=== PATIENT | female | born 1935 | race Caucasian/White ===

== ENCOUNTER 2020-07-24 18:43 | Inpatient (IN) | payer MEDICARE, OTHER ==
--- NOTE | 2020-07-24 19:12 | EDM.PDOC ---
ED HPI GENERAL MEDICAL PROBLEM - General Chief Complaint: Respiratory Problem Time Seen by Provider: 07/24/20 18:43 Source of Information: Reports: Patient History Limitations: Reports: No Limitations - History of Present Illness INITIAL COMMENTS - FREE TEXT/NARRATIVE: Pt. presents to ER via private vehicle. Pt. is a resident at [facility] and was diagnosed with covid 19 on 07/19. Family is concerned that the patient's O2 saturation has been low recently. Staff states that her O2 sat was in the 70s prior to coming to ER. In reviewing her chart, pt. PCP (Dr. Avila at [place]) was notified of her low O2 sats today. At that time, she was running in the 88%- 91% range, according to a phone note. Pt. states that "she is not sure why she is here". She offers no complaint and denies any shortness of breath. Pt. does have a history of dementia, and is not the best historian. Overall, she was in no distress on arrival to ER. Onset: Today Onset Date: 07/24/20 Location: Reports: Generalized - Related Data Allergies Allergy/AdvReac Type Severity Reaction Status Date / Time No Known Allergies Allergy Verified 07/24/20 18:58 Home Meds: Home Meds Ascorbic Acid [Vitamin C] 1,000 mg PO DAILY 07/24/20 [History] Citalopram Hydrobromide [Celexa] 10 mg PO DAILY 07/24/20 [History] Clopidogrel Bisulfate [Plavix] 75 mg PO DAILY 07/24/20 [History] Donepezil HCl 10 mg PO DAILY 07/24/20 [History] Metoprolol Tartrate [Lopressor] 75 mg PO DAILY 07/24/20 [History] Montelukast [Singulair] 10 mg PO DAILY 07/24/20 [History] amLODIPine Besylate [Amlodipine Besylate] 10 mg PO DAILY 07/24/20 [History] lisinopriL [Lisinopril] 40 mg PO DAILY 07/24/20 [History] ED ROS GENERAL - Review of Systems Review Of Systems: See Below Constitutional: Reports: No Symptoms HEENT: Reports: No Symptoms Respiratory: Reports: Other (diagnosed with covid 19. Denies any significant shortness of breath.). Denies: Shortness of Breath Cardiovascular: Reports: No Symptoms Endocrine: Reports: No Symptoms GI/Abdominal: Reports: No Symptoms : Reports: No Symptoms Musculoskeletal: Reports: No Symptoms Skin: Reports: No Symptoms Neurological: Reports: Confusion, Pre-Existing Deficit (existing dementia) Psychiatric: Reports: No Symptoms Hematologic/Lymphatic: Reports: No Symptoms Immunologic: Reports: No Symptoms ED EXAM, GENERAL - Physical Exam Exam: See Below Exam Limited By: No Limitations General Appearance: Alert, WD/WN, No Apparent Distress Eye Exam: Bilateral Eye: EOMI, PERRL Throat/Mouth: Normal Inspection, Normal Oropharynx, Normal Voice, No Airway Compromise Head: Atraumatic, Normocephalic Neck: Normal Inspection, Supple, Non-Tender, Full Range of Motion Respiratory/Chest: No Respiratory Distress, No Accessory Muscle Use, Chest Non- Tender, Other (mildly decreased breath sounds in the bases.) Cardiovascular: Normal Peripheral Pulses, Regular Rate, Rhythm, No Edema, No JVD Peripheral Pulses: 4+: Radial (R) GI/Abdominal: Soft, Non-Tender, No Distention, No Mass (Female) Exam: Deferred Rectal (Female) Exam: Deferred Back Exam: Normal Inspection, Full Range of Motion Extremities: Normal Range of Motion, Non-Tender, Normal Capillary Refill Neurological: Alert, CN II-XII Intact, Normal Reflexes, No Motor/Sensory Deficits, Confused, Disoriented, Other (Pt. awake, able to answer questions. She is confused. Follows commands.) Psychiatric: Normal Affect, Normal Mood Skin Exam: Warm, Dry, Intact, No Rash, Pallor Course - Vital Signs Last Recorded V/S: Last Vital Signs Temp 35.7 C L 07/24/20 18:43 Pulse 97 07/24/20 18:43 Resp 16 07/24/20 18:43 BP 136/67 07/24/20 18:43 Pulse Ox 88 L 07/24/20 18:43 - Orders/Labs/Meds Orders: Active Orders 24 hr Category Date Time Status Patient Status [ADT] Routine ADT 07/24/20 21:37 Ordered EKG Documentation Completion [RC] STAT Care 07/24/20 18:54 Active PE Chest [Ang Chest] [CT] Stat Exams 07/24/20 20:16 Taken Labs: Laboratory Tests 07/24/20 07/24/20 07/24/20 Range/Units 19:35 19:35 19:35 WBC 11.5 H (4.0-10.0) x10^3/uL RBC 4.41 (4.00-5.50) x10^6/uL Hgb 13.3 (12.0-16.0) g/dL Hct 39.9 (33.0-47.0) % MCV 90.5 (78.0-93.0) fL MCH 30.2 (26.0-32.0) pg MCHC 33.3 (32.0-36.0) g/dL RDW Coeff of [place] 13.3 (10.0-15.0) % Plt Count 319 (130-400) x10^3/uL Neut % (Auto) 88.8 H (50.0-80.0) % Lymph % (Auto) 5.1 L (25.0-50.0) % [place] % (Auto) 5.5 (2.0-11.0) % Eos % (Auto) 0.3 (0.0-4.0) % Baso % (Auto) 0.3 (0.2-1.2) % PT 10.6 (9.5-12.3) SEC INR 1.0 L (2.0-3.5) D-Dimer, Quantitative 3.69 H (<=0.58) mg/LFEU Sodium 138 (136-145) mmol/L Potassium 3.6 (3.5-5.1) mmol/L Chloride 99 (98-107) mmol/L Carbon Dioxide 25 (21-32) mmol/L Anion Gap 17.6 (10-20) mmol/L BUN 26 H (7-18) mg/dL Creatinine 1.1 H (0.55-1.02) mg/dL Est Cr Clr Drug Dosing TNP Estimated GFR (MDRD) 47 Glucose 104 (74-106) mg/dL Calcium 9.4 (8.5-10.1) mg/dL Corrected Calcium 9.96 (8.5-10.1) mg/dL Total Bilirubin 0.6 (0.2-1.0) mg/dL AST 40 H (15-37) U/L ALT 49 (14-59) U/L Alkaline Phosphatase 128 H (46-116) U/L Troponin I < 0.017 (<=0.056) ng/mL Total Protein 8.4 H (6.4-8.2) g/dL Albumin 3.3 L (3.4-5.0) g/dL Globulin 5.1 Albumin/Globulin Ratio 0.65 Meds: Medications Discontinued Medications Generic Name Dose Route Start Last Admin Trade Name Freq PRN Reason Stop Dose Admin Azithromycin 500 mg 07/24/20 21:27 Zithromax PO 07/24/20 21:28 ONETIME ONE Iopamidol 100 ml 07/24/20 20:22 07/24/20 21:03 Isovue-300 (61%) IVPUSH 07/24/20 20:23 100 ml ONETIME ONE Administration Departure - Departure Time of Disposition: 21:50 Disposition: Home, Self-Care 01 Clinical Impression: Pulmonary embolism, COVID-19 - Discharge Information Referrals: Steven Munoz MD [Primary Care Provider] - Forms: ED Department Discharge Sepsis Event Note (ED) - Evaluation Sepsis Screening Result: No Definite Risk - Focused Exam Vital Signs: Vital Signs Temp Pulse Resp BP Pulse Ox 07/24/20 18:43 35.7 C L 97 16 136/67 88 L - Problem List Review Problem List Initiated/Reviewed/Updated: Yes - My Orders Last 24 Hours: My Active Orders 07/24/20 18:54 EKG Documentation Completion [RC] STAT 07/24/20 20:16 PE Chest [Ang Chest] [CT] Stat 07/24/20 21:37 Patient Status [ADT] Routine - Assessment/Plan Last 24 Hours: My Active Orders 07/24/20 18:54 EKG Documentation Completion [RC] STAT 07/24/20 20:16 PE Chest [Ang Chest] [CT] Stat 07/24/20 21:37 Patient Status [ADT] Routine Plan: Pt. is a code 2. CTA chest was positive for pulmonary embolism. She has evidence of viral pneumonia as well. Dr. Vasquez will be admitting the patient and ordering anticoagulation for the patient. Pt. daughter (Harper) was contacted at [phone] and briefed on the patient. She consented to admission, as the patient suffers for advanced dementia.
--- NOTE | 2020-07-24 19:50 | CR ---
[id number] RAD/RAD Chest Portable EXAM: RAD Chest Portable INDICATION: COVID 19 COMPARISON: None. DISCUSSION: Cardiomediastinal silhouette is normal in size and contour. Patchy airspace opacifications bilaterally, right greater than left. Trace left pleural effusion. No pneumothorax. Pulmonary hyperinflation. IMPRESSION: Patchy airspace infiltrate bilaterally, right greater than left. Findings are likely infectious/inflammatory in nature as can be seen with atypical/viral pneumonia. Jacky Minor DO 07/24/20 1949 Thank you for allowing us to participate in the care of your patient.
[2020-07-24 20:06] LABS: CHLORIDE,CL 99 mmol/L (98-107); SODIUM,NA 138 mmol/L (136-145)
[2020-07-24 20:09] LABS: ANION GAP 17.6 mmol/L (10-20)
[2020-07-24] MEDS ORDERED: Iopamidol 612 MG/ML 100 ML Bottle IVPUSH ONE (20:22)
[2020-07-24] MEDS ORDERED: Azithromycin 250 MG Tab PO ONE (21:27)
[2020-07-24] MEDS ORDERED: QUEtiapine 25 MG Tab PO PRN (22:26)
[2020-07-24] MEDS: Enoxaparin 60 MG/0.6 ML Syringe SUBCUT SCH (23:24)
[2020-07-24] MEDS: Zinc (Zinc Gluconate) 50 MG Tab PO SCH (23:24)
[2020-07-24] MEDS: Warfarin 5 MG Tab PO SCH (23:24)
[2020-07-24] MEDS: QUEtiapine 25 MG Tab PO PRN (23:30)
--- NOTE | 2020-07-24 23:47 | HP ---
HISTORY OF PRESENT ILLNESS: An 84-year-old admitted for COVID-19 and a pulmonary embolism. The patient had diagnosis on 07/19. Then today, she became more hypoxic. Her O2 saturations were reported to be down in the 80% range. She was having 102.6 fever. They started her on dexamethasone and oxygen, but she was brought into the emergency room this evening. The patient really did not know why she was here. She denied any cough, any shortness of breath or fever, but stated she just did not feel well. Due to her dementia, she is a poor historian. She had a scan showing moderate bilateral pulmonary emboli. She has not had any leg swelling. She denies any history of stroke, although it is listed in her chart. She does have a history also of dementia. She tells me she has lived here for about a year. She had moved over from [place] with her , but he . ALLERGIES: Listed as none. MEDICATION LIST: Including the dexamethasone 6 mg daily, amlodipine 10 mg daily, vitamin C 1000 daily, Celexa 10 mg daily, Plavix 75 mg daily, Aricept 10 mg daily, lisinopril 40 mg daily, Lopressor 75 mg daily, Singulair 10 mg daily. PAST MEDICAL HISTORY: Includes cerebral artery disease with history of stroke, dementia, essential hypertension, hyperlipidemia with history of rhabdomyolysis. PAST SURGICAL HISTORY: She has had cataract surgery and eye surgery. SOCIAL HISTORY: She has not smoked any tobacco. She does not use alcohol. She is . She tells me she has 5 daughters. She was able to name 4 of them and where they live. REVIEW OF SYSTEMS: General: She is not aware of any weight changes. HEENT: She does have some sinus congestion, but denies any sore throat. No trouble swallowing. Cardiac: No chest pain. No palpitations. Respiratory: As stated in HPI. She has been hypoxic, but has not felt short of breath. Abdomen: No nausea, vomiting, diarrhea, or constipation. Musculoskeletal: No new aches or pains. Otherwise, all systems reviewed and found to be negative unless otherwise stated. PHYSICAL EXAMINATION: Vital Signs: To the floor admission; temperature 96.3, pulse 97, blood pressure 136/67, respiratory rate 16, O2 of 88 on room air. General: She is in no acute distress. Heart: Regular rate and rhythm. S1, S2 without murmur. Lungs: Sounds are clear to auscultation bilaterally without crackles or wheezes. Abdomen: Positive bowel sounds. Soft, nontender. Extremities: Warm and dry with trace edema. No calf tenderness. Mental Status: She is disoriented. She thinks she is in [place]. LABORATORY DATA: Laboratory work did show white count 11.5, hemoglobin 13.3, platelets 319. INR 1. D-dimer 3.69. Sodium 138, potassium 3.6, chloride 99, bicarb 25, BUN 26, creatinine 1.1, glucose 104, calcium 9.4, bilirubin 0.6, AST 40, ALT 49, alkaline phosphatase 128, troponin 0.017, albumin 3.3. Chest x-ray did not show any effusions, patchy infiltrates more on the left, infectious or inflammatory or atypical pneumonia. ASSESSMENT AND PLAN: 1. Coronavirus disease 2019 infection since 07/19. The patient is denying any symptoms. I believe her hypoxia is likely due to the pulmonary embolism. 2. Bilateral pulmonary embolism. This is in the setting of a coronavirus disease 2019 infection. We will start her on Lovenox 60 mg subcu twice daily and Coumadin 5 mg daily. 3. Dementia, late onset versus vascular dementia. We will continue supportive cares. I will have some Seroquel available p.r.n. 4. Acute hypoxic respiratory failure secondary to coronavirus disease 2019 and the pulmonary embolism. We will give her supportive oxygen. 5. Essential hypertension. We will continue home medications. 6. Possible pneumonia. She received a dose of Zithromax already. I am going to hold further antibiotics and send off for inflammation markers and a procalcitonin. 7. Mildly elevated LFTs. I will repeat in the a.m. 8. Mild malnutrition. We will encourage a diet. PLAN: The patient will be admitted for acute cares for treatment of a bilateral pulmonary embolism and COVID-19. We will continue dexamethasone for a total of 10 days. MKA: 07/24/2020 22:34:18 MODL: 07/24/2020 23:36:35 /[id number]
[2020-07-25] MEDS: Acetaminophen 325 MG Tab PO PRN ×2 (03:04→14:10)
[2020-07-25 07:41] LABS: ANION GAP 16.4 mmol/L (10-20)
--- NOTE | 2020-07-25 08:27 | CT ---
[id number] CT/CTA Chest EXAM: CT ANGIOGRAM CHEST INDICATION: SHORTNESS OF BREATH, POSITIVE D-DIMER, POSITIVE COVID. COMPARISON: None. DISCUSSION: There are multiple segmental and subsegmental pulmonary emboli involving the right middle and lower lobes as well as the left lingula and left lower lobe. Patchy areas of groundglass density scattered throughout the lungs, right greater than left. No confluent airspace consolidation. No pleural or pericardial effusion. Coronary artery disease. Atherosclerotic calcifications of the aorta and its branches. Multiple prominent mediastinal and hilar lymph nodes which are pathologically enlarged by CT size criteria. These are likely reactive in nature. Small hiatal hernia. IMPRESSION: 1. Multiple scattered segmental and subsegmental pulmonary emboli bilaterally. Overall embolic fluid is small. No evidence of acute right heart strain at this time. 2. Patchy areas of groundglass density scattered throughout the lungs bilaterally, right greater than left. Findings are likely infectious/inflammatory in nature as can be seen with atypical/viral pneumonia. Jacky Minor DO 07/25/20 0823 Thank you for allowing us to participate in the care of your patient.
[2020-07-25] MEDS: Enoxaparin 60 MG/0.6 ML Syringe SUBCUT SCH ×2 (09:36→19:46)
[2020-07-25] MEDS: Ascorbic Acid 500 MG Tab PO SCH ×2 (09:36→19:46)
[2020-07-25] MEDS: amLODIPine 10 MG Tab PO SCH (09:37)
[2020-07-25] MEDS: Cholecalciferol (Vitamin D3) 10 MCG Tab PO SCH (09:38)
[2020-07-25] MEDS: Zinc (Zinc Gluconate) 50 MG Tab PO SCH (09:39)
[2020-07-25] MEDS: Clopidogrel 75 MG Tab PO SCH (09:39)
[2020-07-25] MEDS: Montelukast 10 MG Tab PO SCH (09:39)
[2020-07-25] MEDS: dexAMETHasone 2 MG, dexAMETHasone 4 MG PO SCH ×2 (09:39)
[2020-07-25] MEDS: Citalopram 10 MG Tab PO SCH (09:40)
[2020-07-25] MEDS: Metoprolol Tartrate 50 MG Tab PO SCH (09:40)
[2020-07-25] MEDS: Lisinopril 20 MG Tab PO SCH (09:40)
[2020-07-25] MEDS: Potassium Chloride 10 MEQ Tab.ER PO SCH (09:50)
[2020-07-25] MEDS ORDERED: REMDESIVIR 200 MG in Sodium Chloride 0.9% 250 ML IV ONE (13:45)
--- NOTE | 2020-07-25 14:17 | PN ---
Progress Note for LEBRON ATKINSON Date: 07/25/2020 Room #: VM.210 SUBJECTIVE: This is hospital day #2 on an 84-year-old admitted with COVID-19 infection and bilateral pulmonary embolism. The patient does not feel short of breath. She denies that she is coughing or having chest pain. She was coughing when I walked into the room. She otherwise does not have any leg swelling. She was only on 2 L of oxygen last night, but sats dropped into the mid 80s and she had to go up to 5 L. She also spiked a temperature of 102.3 at 3 a.m. The patient has underlying dementia. She is delightfully confused, but able to answer questions appropriately. She knows she is in [place], but does not remember meeting me before. The patient had also been initiated on dexamethasone at her assisted living yesterday. Her diagnosis of COVID was on 07/19. OBJECTIVE: Vital Signs: The patient's temperature currently is 97.9, pulse is 78, blood pressure 106/58, respiratory rate 18, and O2 is 93 on 2 L. General: She is in no acute distress. Heart: Regular rate and rhythm without murmur. Lungs: Lung sounds are decreased with some fine crackles in both bases. Abdomen: Nondistended. Positive bowel sounds. Nontender. Extremities: Warm and dry. No edema. Mental Status: She is alert. She is orientated x1. LABORATORY DATA: Her lab work did show her to have a white count normal at 9.7, hemoglobin 11.5, platelets 300. Sodium 138, potassium 3.4, chloride 102, bicarb 23, BUN 24, creatinine 1, glucose 95, calcium 9.6, magnesium 2.3. Ferritin 1207. ALT and AST normal, alkaline phosphatase 103. Bilirubin normal. CRP 10.8. Albumin 2.6. ASSESSMENT AND PLAN: 1. Acute hypoxic respiratory failure secondary to COVID-19 infection. She will continue dexamethasone for a total of 10 days. She did get a dose of Zithromax due to concern for pneumonia. Procalcitonin level has already been sent off. We will await the return before ordering further antibiotics and repeat a chest x-ray today. The patient will also be started on remdesivir after I discussed with her daughter, Nydia Grubbs, who is the POA, providing information about remdesivir and letting her know that a patient and caregiver fact sheet will be left for her at the restaurant front manager if she does plan to drop off some things for her mother later. The drug had previously been under emergency use authorization and not fully FDA reviewed and approved. However, it has been shown to decrease the length of stay and hospitalization and the benefits at this time do outweigh the risks for Lebron. I shared that they can cause liver abnormalities and inflammation, so we will be checking those tests daily. There is also other side effects that may not be known due to limited studies. I did offer opportunity for her to ask questions and she was understanding and in agreement to proceed with treatment if it was okay with her siblings and she stated she would contact me within the next few hours if they had any objections. I did inform her that I would plan on starting this medication this afternoon. Therefore, I did initiate the medication around 1:30 p.m. 2. Bilateral pulmonary embolism. Moderate clot burden to the right middle and lower lobes as well as the left lingula and left lower lobe with no sign of heart strain. Her troponin was negative. 3. History of stroke and dementia. We will continue her home medications and supportive cares. 4. Essential hypertension. We will continue home medications. 5. Possible pneumonia. She did get that dose of Zithromax. 6. Mild malnutrition. We will encourage a diet. The patient will continue on acute cares. Her renal function does meet the GFR to give her remdesivir. We will give her 200 mg IV today and then 100 mg daily for the next 4 days. We will continue dexamethasone 6 mg daily. We will continue Lovenox and Coumadin. The patient is not wheezing or requiring any nebulizer. She has no history of chronic lung disease. She is on all the vitamins as recommended for COVID. We will use Tylenol as needed for fevers. MKA: 07/25/2020 13:23:22 MODL: 07/25/2020 14:10:00 /[id number]
--- NOTE | 2020-07-25 14:26 | CR ---
[id number] RAD/RAD Chest PA or AP 1V EXAM: FRONTAL CHEST INDICATION: HYPOXIA. COMPARISON: July 24, 2020. DISCUSSION: Moderate patchy bilateral infiltrates have significantly increased relative to yesterday's examination. No effusion is identified. Borderline heart size with possible early central vascular congestion. IMPRESSION: 1. Patchy bilateral infiltrates are most consistent with infection and have increased relative to the prior study. 2. Cardiomegaly with development of borderline central vascular congestion. Greg Langston MD 07/25/20 [id number] Thank you for allowing us to participate in the care of your patient.
[2020-07-25] MEDS: Warfarin 5 MG Tab PO SCH (19:46)
[2020-07-25] MEDS: Donepezil 10 MG Tab PO SCH (19:46)
[2020-07-25] MEDS: QUEtiapine 25 MG Tab PO PRN (21:08)
[2020-07-26 07:42] LABS: ANION GAP 20.4 mmol/L (10-20)
[2020-07-26] MEDS: Lisinopril 20 MG Tab PO SCH (08:46)
[2020-07-26] MEDS: Enoxaparin 60 MG/0.6 ML Syringe SUBCUT SCH ×2 (08:46→19:33)
[2020-07-26] MEDS: Zinc (Zinc Gluconate) 50 MG Tab PO SCH (08:46)
[2020-07-26] MEDS: Cholecalciferol (Vitamin D3) 10 MCG Tab PO SCH (08:46)
[2020-07-26] MEDS: Metoprolol Tartrate 50 MG Tab PO SCH (08:47)
[2020-07-26] MEDS: dexAMETHasone 2 MG, dexAMETHasone 4 MG PO SCH ×2 (08:48)
[2020-07-26] MEDS: Montelukast 10 MG Tab PO SCH (08:48)
[2020-07-26] MEDS: Clopidogrel 75 MG Tab PO SCH (08:48)
[2020-07-26] MEDS: amLODIPine 10 MG Tab PO SCH (08:49)
[2020-07-26] MEDS: Ascorbic Acid 500 MG Tab PO SCH ×2 (08:49→19:34)
[2020-07-26] MEDS: Citalopram 10 MG Tab PO SCH (08:50)
[2020-07-26] MEDS: Potassium Chloride 10 MEQ Tab.ER PO SCH (08:50)
[2020-07-26] MEDS: Azithromycin 250 MG Tab PO SCH (11:43)
[2020-07-26] MEDS: cefTRIAXone 1 GM Vial IVPUSH SCH (11:44)
--- NOTE | 2020-07-26 11:50 | PN ---
Progress Note for LEBRON ATKINSON Date: 07/26/2020 Room #: VM.210 SUBJECTIVE: This is hospital day #3 on an 84-year-old admitted with COVID-19 infection and bilateral pulmonary embolism. The patient was also given Zithromax on admission on evening of the . Her procalcitonin came back over 1 today. She had been moved up to 10 L yesterday and now this morning 15 L just to maintain saturations at 90%. Her initial COVID date was 07/19. She is denying any chest pain. She has some cough. She is more concerned about her sinuses right now. She does not feel like she is having difficulty breathing, but is winded when getting up and going to the bathroom with staff. She has not had any fever in the last 24 hours. Her last T-max was 102.3 at 3 a.m. on the . She has not been eating much of a diet. She denies diarrhea, but is having bowel movements. OBJECTIVE: Vital Signs: Do include temperature 99.9, pulse 88, blood pressure 112/58, respiratory rate 20, and O2 saturation 90 on 15 L. General: She is in no acute distress. Heart: Regular rate and rhythm with tachycardia. Lungs: Sounds are decreased with crackles in both bases. Abdomen: Has positive bowel sounds. It is soft and nontender. Extremities: Warm and dry with no edema. No calf tenderness. Mental Status: She is disoriented. She is not sure where she is, thinks she is at her current home at [place]. She does not recognize meeting me. She does not remember being told why she is here. Confusion is worse per family since she has been ill, she does have underlying dementia. LABORATORY DATA: White count up to 13.4, hemoglobin 11.8, platelets 318, neutrophils 89%. INR up to 1.5. Sodium 139, potassium 3.4, chloride 104, bicarb 18, BUN 28, creatinine 1, glucose 149, calcium 10.2, bilirubin 0.4, AST 35, ALT 33, albumin 2.5. Procalcitonin 1.13. ASSESSMENT AND PLAN: 1. Acute hypoxic respiratory failure secondary to COVID-19, pulmonary embolism, and pneumonia. We will continue supportive oxygen with 15 L non- rebreather. Discussed proning with nurse and patient. She is agreeable to this. We will also try to get her up in the chair as well today. We will repeat her chest x-ray. We will restart Zithromax 500 mg daily to complete another 4 days. We will also start IV Rocephin 1 g daily. Repeat her lab work tomorrow. Continue dexamethasone and remdesivir. No history of chronic lung disease. At this point, I did not feel that nebulizers would help, but we will consider starting them if needed. 2. Bilateral pulmonary embolism, on Coumadin and Lovenox. We will continue with the same and repeat tomorrow. She had no evidence of initial heart strain. Repeat Troponin in the AM. 3. History of stroke and dementia. We will continue her current home medications. 4. Essential hypertension, on home medications. 5. Community-acquired pneumonia in the setting of COVID-19. She is currently not having any fevers. White count is going up. We will monitor that tomorrow. Restart ABX 6. Mild malnutrition. We will encourage a diet. PLAN: The patient will continue acute cares. Her renal function is remaining excellent. We will continue to anticoagulate her and monitor her oxygen status and lab work closely. She is also mildly low on potassium. We are going to continue oral potassium daily. Her blood sugars have been acceptable. Updated her daughter, Nydia, about her critical situation and current treatments. We will try to do an iPad visit with the patient's family and her nurse today. She is on all the vitamins for the COVID as well. MKA: 07/26/2020 10:55:36 MODL: 07/26/2020 11:43:43 /[id number]
[2020-07-26] MEDS: QUEtiapine 25 MG Tab PO PRN ×2 (12:02→23:15)
[2020-07-26 14:52] LABS: PCO2 ARTERIAL,POC 32 mmHg (35-48)
--- NOTE | 2020-07-26 16:05 | CR ---
[id number] RAD/RAD Chest PA or AP 1V EXAM: RAD Chest PA or AP 1V INDICATION: HYPOXIA. COMPARISON: July 25, 2020 DISCUSSION: Extensive patchy airspace opacifications are again identified bilaterally. These have increased when compared to yesterday's study. This is especially true on the right. No definite pneumothorax or pleural effusion. Cardiac mediastinal silhouette is stable in size and contour. IMPRESSION: Increasing patchy airspace opacifications bilaterally, right greater than left. Jacky Minor DO 07/26/20 1604 Thank you for allowing us to participate in the care of your patient.
[2020-07-26] MEDS ORDERED: Furosemide 20 MG/2 ML VIAL IV ONE (16:25)
[2020-07-26] MEDS: REMDESIVIR 100 MG in Sodium Chloride 0.9% 100 ML IV SCH (16:48)
[2020-07-26] MEDS: Donepezil 10 MG Tab PO SCH (19:34)
[2020-07-26] MEDS: Warfarin 5 MG Tab PO SCH (19:34)
[2020-07-26] MEDS: Acetaminophen 325 MG Tab PO PRN (23:15)
[2020-07-27 07:33] LABS: PTT,PARTIAL THROMBOPLSTIN TIME 48.6 SEC (25.6-32.8)
[2020-07-27 07:42] LABS: ANION GAP 15.6 mmol/L (10-20)
[2020-07-27] MEDS: cefTRIAXone 1 GM Vial IVPUSH SCH (08:16)
[2020-07-27] MEDS: Metoprolol Tartrate 50 MG Tab PO SCH (08:16)
[2020-07-27] MEDS: Enoxaparin 60 MG/0.6 ML Syringe SUBCUT SCH ×2 (08:16→19:43)
[2020-07-27] MEDS: Azithromycin 250 MG Tab PO SCH (08:19)
[2020-07-27] MEDS: Zinc (Zinc Gluconate) 50 MG Tab PO SCH (08:20)
[2020-07-27] MEDS: Citalopram 10 MG Tab PO SCH (08:21)
[2020-07-27] MEDS: Ascorbic Acid 500 MG Tab PO SCH ×2 (08:21→19:44)
[2020-07-27] MEDS: Montelukast 10 MG Tab PO SCH (08:21)
[2020-07-27] MEDS: Potassium Chloride 10 MEQ Tab.ER PO SCH (08:21)
[2020-07-27] MEDS: Cholecalciferol (Vitamin D3) 10 MCG Tab PO SCH (08:22)
[2020-07-27] MEDS: dexAMETHasone 2 MG, dexAMETHasone 4 MG PO SCH ×2 (08:23)
[2020-07-27] MEDS: amLODIPine 10 MG Tab PO SCH (08:24)
[2020-07-27] MEDS: Lisinopril 20 MG Tab PO SCH (09:03)
[2020-07-27] MEDS ORDERED: Furosemide 20 MG/2 ML VIAL IV ONE (09:27)
--- NOTE | 2020-07-27 10:01 | CR ---
[id number] RAD/RAD Chest PA or AP 1V EXAM: FRONTAL CHEST INDICATION: HYPOXIA. COMPARISON: July 26, 2020. DISCUSSION: Moderate patchy multifocal bilateral infiltrates are most consistent with infection including Covid 19. Stable normal heart size. No effusions. IMPRESSION: 1. Stable moderate patchy bilateral infiltrates. Greg Langston MD 07/27/20 1000 Thank you for allowing us to participate in the care of your patient.
[2020-07-27] MEDS ORDERED: QUEtiapine 25 MG Tab PO PRN (16:30)
[2020-07-27] MEDS: REMDESIVIR 100 MG in Sodium Chloride 0.9% 100 ML IV SCH (18:36)
[2020-07-27] MEDS: Donepezil 10 MG Tab PO SCH (19:44)
--- NOTE | 2020-07-27 20:13 | PN ---
Progress Note for LEBRON ATKINSON Date: 07/27/2020 Room #: [facility] SUBJECTIVE: Hospital day #4 on an 84-year-old admitted with bilateral PEs and a COVID-19 infection. The patient continues to require 15 L of oxygen. She was unable to tolerate the BiPAP more than a few minutes. She is still quite confused. She believes she is in [place], but she does look better this morning. She is not struggling to breathe. She did get up out of bed, and unfortunately had a fall with no injury. She wandered out into the [place], so does need some supervision. Family had contacted staff because they have recovered from COVID. They would like to visit her. We do have a policy for visitation or support when somebody needs a sitter. I do feel this patient would qualify for that for her own safety. She has been afebrile today. She is coughing a little bit, seems to be most bothered by her sinuses. She has eaten very little. She is having bowel movements, but no diarrhea. She did get a dose of IV Lasix yesterday. Her proBNP is elevated this morning. She does have a worsening chest x-ray. She is on antibiotics day #3 of Zithromax, day #2 of Rocephin. OBJECTIVE: Vital Signs: Her temperature is 96.6, her pulse is 81, blood pressure 129/59, respiratory rate 20, and O2 of 88 on 15 L. General: She is in no acute distress. Heart: Regular rate and rhythm. S1 and S2 without murmur. Lungs: Sounds decreased with some fine crackles over the right base and expiratory wheezes throughout. Left lung is clear. Abdomen: Nondistended, positive bowel sounds, nontender. Extremities: Warm and dry. No edema. Mental Status: She is alert. She does not recognize me. She thinks she is in [place], not able to give me the date. LABORATORY DATA: White count up to 16.9, hemoglobin 12.2, and platelets 407. Sodium 143, potassium 3.6, chloride 107, bicarb 30, glucose 129, calcium 10.3. Bilirubin, ALT, AST all normal. Troponin negative. ProBNP 1619, albumin 2.6. ASSESSMENT: 1. Bilateral pulmonary embolisms in the setting of a coronavirus disease-19 infection. Actually, her INR is up to 2.5 today. She will get her last dose of Lovenox. Due to the quick increase in INR from 1.5 to 2.5, I am going to hold tonight's dose and check an INR in the morning. She was only getting 5 mg daily. 2. Coronavirus disease-19 infection. She is on remdesivir. She is on dexamethasone. She is on the vitamins. We will continue supportive oxygen. She was able to do some proning yesterday. We will continue with this. 3. Delirium with underlying dementia. Did discuss with her daughter, Lisa, family that has recovered. They do know the risks. They have been sick within the last few weeks with coronavirus disease. Will be allowed to be in the room with the patient as a one-on-one sitter. They may assist her with eating. 4. History of stroke. 5. Essential hypertension, on home medications. Due to dosing IV Lasix, I did hold her lisinopril this morning, but she will continue amlodipine. 6. Community-acquired pneumonia, on Rocephin and Zithromax, but with increasing white count, no fevers, we will continue the same treatments for now. 7. Mild malnutrition. We are encouraging a diet. 8. Acute diastolic heart failure. She has not received IV fluids, but does seem to be responding to IV Lasix. We will repeat a dose today. PLAN: The patient will continue on acute cares. Will continue with current treatments. Last dose of Lovenox tonight. MKA: 07/27/2020 19:30:33 MODL: 07/27/2020 20:02:57 /[id number] MTDD
[2020-07-28 07:46] LABS: ANION GAP 16.8 mmol/L (10-20)
[2020-07-28] MEDS: dexAMETHasone 2 MG, dexAMETHasone 4 MG PO SCH ×2 (10:15)
[2020-07-28] MEDS: Cholecalciferol (Vitamin D3) 10 MCG Tab PO SCH (10:15)
[2020-07-28] MEDS: cefTRIAXone 1 GM Vial IVPUSH SCH (10:15)
[2020-07-28] MEDS: Ascorbic Acid 500 MG Tab PO SCH ×2 (10:15→19:38)
[2020-07-28] MEDS: Lisinopril 10 MG Tab PO SCH (10:16)
[2020-07-28] MEDS: Azithromycin 250 MG Tab PO SCH (10:16)
[2020-07-28] MEDS: Zinc (Zinc Gluconate) 50 MG Tab PO SCH (10:16)
[2020-07-28] MEDS: Montelukast 10 MG Tab PO SCH (10:16)
[2020-07-28] MEDS: Citalopram 10 MG Tab PO SCH (10:16)
[2020-07-28] MEDS: Metoprolol Tartrate 50 MG Tab PO SCH (10:17)
[2020-07-28] MEDS: amLODIPine 10 MG Tab PO SCH (10:17)
[2020-07-28] MEDS: Potassium Chloride 10 MEQ Tab.ER PO SCH (10:38)
--- NOTE | 2020-07-28 15:19 | PN ---
Progress Note for LEBRON ATIKNSON Date: 07/28/2020 Room #: VM.210 SUBJECTIVE: This is hospital day #5 on an 84-year-old admitted with bilateral pulmonary embolism and a COVID-19 infection. Her positive test was on 07/19. She denies any fever. No trouble breathing. No cough. No chest pain. She would like to drink some water. She would like someone to be in the room with her. OBJECTIVE: Vital Signs: She has a temperature of 98.6, pulse 84, blood pressure 141/67, respiratory rate 18, and O2 of 91 on 15 L. General: She is in no acute distress. Heart: Regular rate and rhythm. S1 and S2 without murmur. Lungs: Lung sounds do show "crackles" on both bases. Abdomen: Positive bowel sounds. Soft and nontender. Extremities: Warm and dry. No edema. She does have some bruising over the left knee from a fall yesterday. Mental Status: The patient thinks she is somewhere in the basement. She is not able to tell me she is in the hospital or in [place]. LABORATORY DATA: Her lab work today did show her to have a white count up to 19,000, hemoglobin 12.5, and platelets 436. INR up to 3.9. Sodium 148, potassium 3.8, chloride 112, bicarbonate 23, BUN 35, creatinine 0.9, glucose 133, and calcium 9. Bilirubin 0.3, AST 28, and ALT 33. CRP 11.9. Albumin 2.6. UA did not show any signs of infection. ASSESSMENT AND PLAN: 1. Coronavirus disease-19 infection with an extended stay due to bilateral pulmonary embolism and acute hypoxic respiratory failure. Due to the coronavirus disease-19 pandemic and limited hospital beds around the [facility], the patient has extended beyond her 96-hour critical access window. She is actually starting to make some improvements, and given her confusion from dementia, it is best to continue treating her locally. Her daughter, who has recovered from coronavirus disease, does plan to come into the facility and be with her today which will help to have somebody with her, help her to eat, and avoid her getting out of bed and falling. 2. Bilateral pulmonary embolism. She has completed Lovenox. Her INR is therapeutic. I am going to hold Coumadin again today and check an INR in the morning. Slightly concerned about her rapid increase in INR despite only 5 mg of Coumadin. So, we will monitor closely and restart dosing very likely at a 2 mg or 2.5 mg dose. She is not having any bleeding problems. 3. Acute hypoxic respiratory failure. She does not tolerate the BiPAP well. She seems to be quite comfortable on nasal cannula. We will continue with the same. 4. Delirium due to underlying dementia. She does have p.r.n. Seroquel available. She did not even use any last night. 5. History of stroke. 6. Essential hypertension. I will restart her lisinopril. Her blood pressure is mildly elevated today. It was held yesterday due to getting IV Lasix. 7. Acute diastolic heart failure exacerbation. Clinically, the patient was retaining some fluid. This, despite limited intake, might be related to her steroids. I think we can hold off on further Lasix dosing today and continue to monitor. 8. Community-acquired pneumonia. She is on Rocephin and Zithromax. We will continue to complete a 5-day course. 9. Mild malnutrition. We are encouraging a diet. PLAN: The patient will continue on acute cares. We will continue IV antibiotics. We will continue the 5-day course of IV remdesivir. We will continue to monitor INRs closely. We will continue oxygen. We will continue her dexamethasone to complete a 10-day course as well, which will be on the . MKA: 07/28/2020 14:53:10 MODL: 07/28/2020 15:09:30 /[id number]
[2020-07-28] MEDS: REMDESIVIR 100 MG in Sodium Chloride 0.9% 100 ML IV SCH (17:27)
[2020-07-28] MEDS: Donepezil 10 MG Tab PO SCH (19:39)
[2020-07-28] MEDS: Acetaminophen 325 MG Tab PO PRN (20:34)
[2020-07-29] MEDS: cefTRIAXone 1 GM Vial IVPUSH SCH (08:16)
[2020-07-29] MEDS: Azithromycin 250 MG Tab PO SCH (08:17)
[2020-07-29] MEDS: Zinc (Zinc Gluconate) 50 MG Tab PO SCH (08:17)
[2020-07-29] MEDS: Sodium Chloride 0.9% 10 ML Syringe FLUSH SCH ×2 (08:17→19:31)
[2020-07-29] MEDS: Cholecalciferol (Vitamin D3) 10 MCG Tab PO SCH (08:17)
[2020-07-29] MEDS: amLODIPine 10 MG Tab PO SCH (08:18)
[2020-07-29] MEDS: Montelukast 10 MG Tab PO SCH (08:18)
[2020-07-29] MEDS: Metoprolol Tartrate 50 MG Tab PO SCH (08:18)
[2020-07-29] MEDS: Citalopram 10 MG Tab PO SCH (08:19)
[2020-07-29] MEDS: Ascorbic Acid 500 MG Tab PO SCH ×2 (08:19→19:30)
[2020-07-29] MEDS: dexAMETHasone 2 MG, dexAMETHasone 4 MG PO SCH ×2 (08:19)
[2020-07-29] MEDS: Lisinopril 10 MG Tab PO SCH (08:20)
[2020-07-29] MEDS: Acetaminophen 325 MG Tab PO PRN (08:20)
[2020-07-29] MEDS: Clopidogrel 75 MG Tab PO SCH (08:21)
[2020-07-29] MEDS ORDERED: Phytonadione ORAL 2.5mg/2.5ml Soln Simple Syrup U/D PO ONE (12:04)
[2020-07-29] MEDS: Sodium Chloride 0.9% 1,000 ML IV SCH ×2 (12:13→19:12)
[2020-07-29] MEDS ORDERED: TAZOBACTAM IV SCH (12:15)
[2020-07-29] MEDS ORDERED: SODIUM CHLORIDE 0.9% IV SCH (12:15)
[2020-07-29] MEDS ORDERED: PIPERACILLIN IV SCH (12:15)
[2020-07-29] MEDS ORDERED: Piperacillin/Tazobactam 4.5 GM in Sodium Chloride 0.9% 100 ML IV ONE (12:30)
[2020-07-29] MEDS ORDERED: Phytonadione 5 MG Tab PO STA (13:25)
[2020-07-29] MEDS: Donepezil 10 MG Tab PO SCH (19:31)
--- NOTE | 2020-07-29 20:34 | PN ---
Progress Note for LEBRON ATKINSON Date: 07/29/2020 Room #: VM.210 SUBJECTIVE: [facility] day #6 for an 84-year-old admitted with bilateral pulmonary embolism and COVID-19 infection. Her positive test was on 07/19. She has not had any fever. She denies trouble breathing. She just feels more weak and tired. She has been getting up to go to the bathroom with assistance. She is not having any burning. However, she is in acute renal failure and need to monitor strict in's and out's. Her INR also unfortunately is over 10 despite not having any Coumadin yesterday or the day before. She has been off Lovenox. We have been holding her Plavix. She has not had any bleeding problems. She has been eating very limited. I do not see a couple meals charted even at all yesterday and did have about 20% of dinner. She had one larger loose stool but has not been having ongoing diarrhea. She denies abdominal pain. She did have her daughter here to visit yesterday. She did remember it was Harper. She knows she is in the hospital. OBJECTIVE: VITAL SIGNS: Her temperature is 98.5, pulse 66, blood pressure 135/69, respiratory rate 20, and O2 91 on 15 L. GENERAL: She is in no acute distress. HEART: Regular rate and rhythm. S1, S2 without murmur. LUNGS: Sounds are decreased with crackles noted in both bases but slightly more clear than yesterday. ABDOMEN: Has positive bowel sounds. Soft, nondistended, nontender. EXTREMITIES: Warm and dry. No edema. MENTAL STATUS: Again, she is alert and oriented x2. LAB WORK: On chart fortunately showed that white count up to 25.4, hemoglobin 13.7, platelets 140, neutrophils 89%, yesterday 90. INR 10.1. Sodium 143, potassium 4, chloride 108, bicarb 21, BUN 58, creatinine 2.6 up from 0.9, glucose 146, calcium 8.3. Ferritin up to 3027. AST 82, ALT 43, alkaline phosphatase 153, albumin 2.4. ASSESSMENT: 1. COVID-19 infection, day #11, but with symptoms of acute hypoxic respiratory failure. We will stop the remdesivir due to renal failure. We will continue with her same oxygen. She does not appear to be in any respiratory distress. I will get a venous ABG in the morning. She is beyond her 96-hour critical access window, but due to the fact that she has not worsened and her overall care remains stable and shortage of other hospital bed around the state, we will continue to treat her here. Her daughter will also likely be coming today to provide some one-on-one care and feed her. 2. Bilateral pulmonary embolism. She is supratherapeutic on Coumadin. We are holding it. I gave her 2.5 of vitamin K. We will recheck tomorrow. 3. Acute hypoxic respiratory failure secondary to COVID-19. I do not feel she needs BiPAP. We will continue with the high-flow. 4. Delirium with underlying dementia. We will continue her home medications. She did get a dose of Seroquel last night. 5. History of stroke. 6. Essential hypertension. I have stopped her lisinopril due to the acute renal failure. We will continue her other medications. 7. Chronic diastolic heart failure exacerbation or concern for heart failure. At this point, she is in renal failure and dehydrated. I will give her fluid. We will have to watch her respiratory status closely. 8. Community-acquired pneumonia. She is on Rocephin and Zithromax. However, with increasing white count, we will stop the Rocephin and give her Zosyn, although there has not been any reports of aspiration. I will hold off on vancomycin due to my concern for her renal function. 9. Mild malnutrition. 10.Acute renal failure due to volume depletion and dehydration. Despite not having fever, the patient's renal status worsened. We will give her some IV fluids and repeat lab work tomorrow. PLAN: The patient will continue acute care. She will get started on IV fluids. We will stop remdesivir. She has also dexamethasone until the . She is on her vitamins. I will continue to monitor the INR closely. MKA: 07/29/2020 19:32:40 MODL: 07/29/2020 20:27:55 /[id number]
[2020-07-30] MEDS: Piperacillin/Tazobactam 3.375 GM in Sodium Chloride 0.9% 100 ML IV SCH ×3 (00:07→11:54)
[2020-07-30] MEDS: Sodium Chloride 0.9% 1,000 ML IV SCH (05:34)
[2020-07-30] MEDS: amLODIPine 10 MG Tab PO SCH (08:01)
[2020-07-30] MEDS: Metoprolol Tartrate 50 MG Tab PO SCH (08:02)
[2020-07-30] MEDS: Azithromycin 250 MG Tab PO SCH (08:02)
[2020-07-30] MEDS: Ascorbic Acid 500 MG Tab PO SCH ×2 (08:03→21:07)
[2020-07-30] MEDS: Zinc (Zinc Gluconate) 50 MG Tab PO SCH (08:03)
[2020-07-30] MEDS: Cholecalciferol (Vitamin D3) 10 MCG Tab PO SCH (08:03)
[2020-07-30] MEDS: Citalopram 10 MG Tab PO SCH (08:04)
[2020-07-30] MEDS: Montelukast 10 MG Tab PO SCH (08:04)
[2020-07-30] MEDS: Sodium Chloride 0.9% 10 ML Syringe FLUSH SCH ×2 (08:04→21:25)
[2020-07-30] MEDS: dexAMETHasone 2 MG, dexAMETHasone 4 MG PO SCH ×2 (08:04)
[2020-07-30] MEDS ORDERED: Ondansetron 4 MG/2 ML SDV IVPUSH PRN (09:20)
[2020-07-30] MEDS ORDERED: Warfarin 2.5 MG Tab PO ONE (09:21)
[2020-07-30] MEDS ORDERED: QUEtiapine 25 MG Tab PO PRN (09:24)
[2020-07-30 09:36] LABS: ANION GAP 22.8 mmol/L (10-20)
[2020-07-30] MEDS ORDERED: Ondansetron 4 MG/2 ML SDV ONE (09:36)
[2020-07-30] MEDS: Vancomycin 125 MG Cap PO SCH ×4 (10:07→21:07)
--- NOTE | 2020-07-30 10:32 | CR ---
[id number] RAD/RAD Chest PA or AP 1V EXAM: RAD Chest PA or AP 1V INDICATION: HYPOXIA. COMPARISON: July 27, 2020. DISCUSSION: Cardiomediastinal silhouette is stable in size and contour. Patchy airspace opacifications bilaterally. Overall these are not significantly changed when compared to the prior study. No pneumothorax or pleural effusion. IMPRESSION: Stable chest with extensive patchy airspace opacifications bilaterally. Jacky Minor DO 07/30/20 1031 Thank you for allowing us to participate in the care of your patient.
[2020-07-30] MEDS ORDERED: Furosemide 40 MG/4 ML VIAL IV ONE (11:18)
[2020-07-30] MEDS: Doxycycline 100 MG Cap PO SCH ×2 (11:49→21:07)
--- NOTE | 2020-07-30 12:26 | PN ---
Progress Note for LEBRON ATKINSON Date: 07/30/2020 Room #: VM.210 SUBJECTIVE: This is hospital day #7 on an 84-year-old admitted with COVID-19 infection and bilateral pulmonary embolism with acute hypoxic respiratory failure, day #12 of COVID but based on symptoms possibly already day 14. She has not had any fevers but has had increased trouble breathing. Yesterday, she was actually continuing in the upper 80s on 15 L, like she has been for her course, but this morning, she is consistently between 75% and 85% on the nasal high-flow, which does sometimes come out of her nose and she does not appreciate the non-rebreather. We have tried proning. She cannot keep on the non-rebreather in that position. We have repeated her chest x-ray, which did show bilateral infiltrates but no significant worsening. She has had diarrhea and was incontinent of stool this morning. A catheter was placed yesterday for strict in's and out's and acute renal failure, and she did have only 167 mL recorded out despite the fact I started IV fluids and she had in 2.43 L. She denies that she is in any pain. Daughter has heard her coughing. She still has trouble with her sinuses, is what she tells me, but she does not feel any shortness of breath. She does feel sort of sick to her stomach and has the bag to throw up in. She just spit up a little but denies that it is bad stomach pain. She did not have any intake for diet charted yesterday. OBJECTIVE: Vital Signs: Her temperature is 98.1, her pulse 80, blood pressure 151/66, respiratory rate 20, and O2 of 85 on 15 L. General: She is in mild respiratory distress today. Heart: Regular rate and rhythm. Lungs: Her lung sounds with significant crackles over the left base, much worse than on the right. She has decreased breath sounds and some crackles. Abdomen: Nondistended. Positive bowel sounds. Nontender. Extremities: Warm and dry. No edema. Mental Status: She is alert. She knows that it is her daughter, Harper, in the room. When I ask about where she is at, she cannot really understand or hear me. Genitourinary: Her catheter is having clean urine. LABORATORY WORK: Her white count is up to 36.4, hemoglobin 13.6, and platelets 85. This is a drop from yesterday. Neutrophils 98%. INR 2.7. Venous blood gases, CO2 was 31. Sodium 143, potassium 3.8, chloride 108, bicarbonate 16, BUN 86, creatinine 4.6, glucose 116, calcium 7.4, and AST 254, which is up. She had been on remdesivir. It was stopped due to renal failure yesterday. ALT 127, alkaline phosphatase 180. CRP 12.9, albumin 2.3, and lactic acid was 2. ASSESSMENT: 1. COVID-19 infection, severe with bilateral pulmonary embolisms and acute hypoxic respiratory failure. The patient is still on dexamethasone until the 08/02/2020. We have stopped the remdesivir. She is on high oxygen at 15 L. we are trying proning and non-rebreather. She already did not tolerate the BiPAP well earlier in her stay. Discussed with her daughter, Gloria, that patient has been no cardiopulmonary resuscitation, no intubation from the beginning. Her family has been understanding of that. She is beyond her 96-hour critical access window. However, she is not desiring aggressive cares like ICU and due to the COVID pandemic, we can continue to treat her but she may continue to worsen and ultimately go on comfort cares. 2. Bilateral pulmonary embolism. Her INR is therapeutic at 2.7. She has not received any Lovenox since the . We will restart Coumadin now at 2.5 mg daily and recheck tomorrow. 3. Thrombocytopenia, severe, worsening, likely due to her acute illness. She is not having any bleeding. I have already stopped her Plavix. Platelets are 85. 4. Acute hypoxic respiratory failure due to COVID-19. We will continue supportive cares with high-flow oxygen, non-rebreather, and prone positioning. I will also give her a dose of 40 mg of intravenous Lasix today due to the fluids I gave her to help with renal failure and see if that makes any improvement in her respiratory status and picks up her urine output. 5. Delirium with underlying dementia. She was able to answer questions but did sleep most of the day yesterday. Part of that is probably, she is just very exhausted and other part is she did receive Seroquel on the previous evening. She has not needed Seroquel since. 6. History of stroke. 7. Essential hypertension. Lisinopril has been stopped due to the acute renal failure. We will continue the amlodipine. Blood pressure remains high, but the intravenous Lasix should help. 8. Chronic diastolic heart failure exacerbation due to the COVID-19. We will give her 40 mg of intravenous Lasix x1 in hopes it will improve her respiratory status, knowing that it may make her renal status worse. 9. Community-acquired pneumonia. She is on the Zithromax and day #2 now of Zosyn after switching over from Rocephin. We held off on vancomycin due to no fevers, no history of methicillin-resistant Staphylococcus aureus, and concern for worsening kidney function. I will stop the Zithromax and start doxycycline, which would cover for methicillin-resistant Staphylococcus aureus. 10.Malnutrition. We will encourage diet, but she is just likely too ill to eat, but we will continue to encourage it. 11.Acute renal failure. Her creatinine is up to 4.6, BUN 86. We will continue to monitor this. 12.Elevated liver enzymes likely due to the COVID and the remdesivir that was received. This has been stopped. Her ferritin did though improve from 3000 to 2400. We will continue dexamethasone. PLAN: The patient will continue acute cares. Due to the critical and worsening nature of her illness, family is able to come in and visit with PPE protection. Her daughter, Harper, had actually recovered from COVID so had been spending some time in the room with her to help even try to encourage and feed her. Otherwise, we will continue all supportive cares. Instructed daughter, Gloria, that we were not stopping any treatments. We would just not escalate to intubation, and she understood this. She does have another daughter who arrived to see her and a fourth daughter who will be on her way and also a son. MKA: 07/30/2020 11:25:30 MODL: 07/30/2020 12:20:22 /[id number] MTDRaegan
[2020-07-30] MEDS: Amoxicillin/Clavulanate K 500-125 MG Tab PO SCH (21:06)
[2020-07-30] MEDS: Donepezil 10 MG Tab PO SCH (21:06)
[2020-07-31 07:59] LABS: ANION GAP 24.3 mmol/L (10-20)
[2020-07-31] MEDS: Vancomycin 125 MG Cap PO SCH (07:59)
[2020-07-31] MEDS: Metoprolol Tartrate 50 MG Tab PO SCH (07:59)
[2020-07-31] MEDS: Amoxicillin/Clavulanate K 500-125 MG Tab PO SCH (07:59)
[2020-07-31] MEDS: Montelukast 10 MG Tab PO SCH (07:59)
[2020-07-31] MEDS: Doxycycline 100 MG Cap PO SCH (07:59)
[2020-07-31] MEDS: Ascorbic Acid 500 MG Tab PO SCH (08:00)
[2020-07-31] MEDS: dexAMETHasone 2 MG, dexAMETHasone 4 MG PO SCH ×2 (08:00)
[2020-07-31] MEDS: Citalopram 10 MG Tab PO SCH (08:01)
[2020-07-31] MEDS: Acetaminophen 325 MG Tab PO PRN (08:01)
[2020-07-31] MEDS: Zinc (Zinc Gluconate) 50 MG Tab PO SCH (08:02)
[2020-07-31] MEDS: amLODIPine 10 MG Tab PO SCH (08:02)
[2020-07-31] MEDS: Cholecalciferol (Vitamin D3) 10 MCG Tab PO SCH (08:03)
[2020-07-31] MEDS ORDERED: Furosemide 100 MG/10 ML SDV IV ONE (08:27)
[2020-07-31] MEDS: Sodium Chloride 0.9% 10 ML Syringe FLUSH PRN ×2 (09:45→11:38)
[2020-07-31] MEDS ORDERED: HYDROmorphone 1 MG/ML Syringe IVPUSH PRN (10:22)
--- NOTE | 2020-07-31 18:51 | DISCH ---
PRIMARY DISCHARGE DIAGNOSIS: Coronavirus disease 19 infection, severe, positive test on 07/19. She was having 102.6 fevers and O2 sats in the 80% range. She was brought over to [facility] for admission. CT scan did show bilateral pulmonary embolism and she was initiated on Lovenox and warfarin. SECONDARY DISCHARGE DIAGNOSES: Include: 1. Bilateral pulmonary embolism but without heart strain. 2. Acute renal failure, which started on 07/29 and worsened. The patient had been taken off the remdesivir and also lisinopril for blood pressure. 3. Acute hypoxic respiratory failure secondary to coronavirus disease 19 and bilateral pulmonary embolism. She was requiring 15 L of high-flow oxygen and non-rebreather at times proning. She did not tolerate the BiPAP. 4. Thrombocytopenia, severe and worsening, probably due to her acute illness. She had been off Lovenox since at least 07/27 were her last doses. 5. Severe leukocytosis with diarrhea, possibly Clostridium difficile with test pending on discharge. She was already started on treatment. 6. Delirium with underlying dementia due to her critical illness. She did use some as needed Seroquel at night. 7. History of stroke. 8. Essential hypertension. Lisinopril did have to be stopped due to acute renal failure. She otherwise did receive amlodipine. 9. Chronic diastolic heart failure. The patient did receive doses of intravenous Lasix to help her respiratory status. This was done in consultation with [place] specialist. It, however, may have contributed somewhat to her renal failure, but IV fluids did not seem to reverse the course and made her respiratory status worse. She had only 20 mL of urine output in the 24 hours prior to her discharge despite giving a 100 mg dose of IV Lasix. 10.Community-acquired pneumonia. She was treated with multiple different antibiotics in an effort to try to improve her course including Rocephin, Zithromax, Zosyn, and doxycycline. 11.Malnutrition. We did encourage her to eat a diet. However, she was not eating much. 12.Elevated liver enzymes likely due to the coronavirus disease 19 and remdesivir, which had been stopped before she completed her course. REASON FOR ADMISSION: Again was discussed above for fevers, COVID-19, and bilateral pulmonary embolism. HOSPITAL COURSE: The patient was treated with IV remdesivir and oral dexamethasone. She was initiated on Lovenox and Coumadin and did become therapeutic with her INR quite quickly. In fact, by the , I held Coumadin at that point. Despite that, her INR went up to 10.1 and she received 2.5 of oral vitamin K. INR was 2.7 the next day, so she did get 2.5 mg of Coumadin and she was up to 4.8 today. She was not having any bleeding trouble. I had already stopped her Plavix. Her creatinine which had been normal at 0.9 on the went up to 2.6, then 4.6, now 6.8, and she was making nearly no urine. ProBNP was also 20,000 today, but she was not responding to Lasix. Her blood pressures had actually been elevated more this morning like 166/71, but did drop to 97/50 this afternoon. Family had decided they wanted to take her home to assisted living, so they could all be with her under hospice care and Nursing did help to make arrangements for [place] to meet them at 5 o'clock at [facility]. Ambulance to transport her back to [place] with oxygen. I did order liquid morphine to provide continued comfort for her if it was needed. I did initiate some IV Dilaudid today, which she did receive last at 11:40. The patient was less responsive and more tired even over the last couple of days and I had multiple discussions with family about her course. It was not improving and did allow visitation with family to come in and spend time with her. DISCHARGE PLANS AND INSTRUCTIONS: The patient is going back to [place] on hospice of the [facility]. The only medication I ordered for her on discharge was the liquid morphine 5 mg every 4 hours as needed for pain or respiratory distress. She may eat and drink what she chooses. [place] catheter will be left in place for comfort. Nursing did have report at least 3 loose diarrhea stools overnight. This despite her not eating anything for the last 2 days. She will be going home on hospice with family. MKA: 07/31/2020 16:32:37 MODL: 07/31/2020 18:44:30 /[id number] MAKI
== END 2020-07-31 17:15 | disposition hospice, home (50) | DRG 177 ==
LOC: VM.ED 18:43 → VM.MS 21:37
PROVIDERS: ADMIT Internal Medicine; ATTEND Internal Medicine
PROC: XW033E5 Introduction of Remdesivir Anti-infective into Peripheral Vein, Percutaneous Approach, New Technology Group 5 (ICD-10-PCS; principal; 2020-07-25)
PROC: 8E0ZXY6 Isolation (ICD-10-PCS; 2020-07-28)
DX: U07.1 COVID-19 (principal); I26.99 Other pulmonary embolism without acute cor pulmonale; Z79.02 Long term (current) use of antithrombotics/antiplatelets; Z79.899 Other long term (current) drug therapy; J12.89 Other viral pneumonia; J96.01 Acute respiratory failure with hypoxia; I50.31 Acute diastolic (congestive) heart failure; E44.1 Mild protein-calorie malnutrition; F05 Delirium due to known physiological condition; N17.9 Acute kidney failure, unspecified; F03.90 Unspecified dementia, unspecified severity, without behavioral disturbance, psychotic disturbance, mood disturbance, and anxiety; D69.6 Thrombocytopenia, unspecified; I10 Essential (primary) hypertension; E78.5 Hyperlipidemia, unspecified; Z98.49 Cataract extraction status, unspecified eye; Z86.73 Personal history of transient ischemic attack (TIA), and cerebral infarction without residual deficits
CPT/HCPCS: 71045; 71275; 80053; 84484; 85025; 85379; 85610; 93005; 99284; 99285; Q9967; 36415; 36600; 51702; 81003; 82728; 82803; 83605; 83735; 83880; 84145; 85027; 85730; 86140; 87493; 97116-GP; 97161-GP; 97530-GP; A9270-GY; J0696; J1170; J1650; J1940; J2405; J2543; J7030; J7050; J8540